=== PATIENT | female | born 1945 | race Caucasian/White ===

== ENCOUNTER → 2018-01-18 | Outpatient (CLI) | payer MEDICARE, OTHER ==
[~2018-01-18] MED LIST: ASPI81CH PO; CHOL10002; CONEST.625 PO; ROSU10TA PO; SIMV10; VALS80 PO
== END | disposition home or self-care (01) ==
LOC: OLS 16:44 → LAB SHORT 16:44
PROVIDERS: Obstetrics & Gynecology Gynecology
DX: Z91.89 Other specified personal risk factors, not elsewhere classified (principal)
CPT/HCPCS: 87624; G0123

== ENCOUNTER → 2018-10-23 | Outpatient (CLI) | payer MEDICARE, OTHER | LOC: LAB 10:00 → LAB SHORT 10:00 → LAB FUT 10-15 14:15 | DX: R10.13 Epigastric pain (principal) | CPT/HCPCS: 87338 ==

== ENCOUNTER → 2019-01-22 | Outpatient (CLI) | payer MEDICARE, OTHER ==
[2019-01-24 13:07] LABS: HPV 16 Negative (Negative); HPV 18 Negative (Negative); HPV OTHER HR TYPES Negative (Negative)
== END | disposition home or self-care (01) ==
LOC: LAB 17:45 → LAB SHORT 17:45
PROVIDERS: Nurse Practitioner Women's Health
DX: Z12.72 Encounter for screening for malignant neoplasm of vagina (principal); Z91.89 Other specified personal risk factors, not elsewhere classified
CPT/HCPCS: 87624; G0123

== ENCOUNTER 2022-08-12 11:08 | Inpatient (IN) | payer MEDICARE, OTHER ==
[~2022-08-12] VITALS: Ht 172.7 cm; Wt 90.7 kg
[2022-08-12] MEDS ORDERED: DONEPEZIL HCL10 M1 PO (13:47)
[2022-08-12] MEDS ORDERED: MEMA10 PO (13:47)
[2022-08-12] MEDS ORDERED: METOPROLOL TART25 MG PO (13:47)
[2022-08-12] MEDS ORDERED: PRAVASTATIN SOD10 MG PO (13:48)
[2022-08-12 14:52] LABS: BASOPHILS ABSOLUTE AUTO 0.02 K/mm3 (0.00-0.23); BASOPHILS PERCENT AUTO 0 % (0-2); EOSINOPHILS PERCENT AUTO 0 % (0-6); Hematocrit 36.7 % (33.0-51.0); Hemoglobin 13.1 g/dL (11.5-16.0); IMMATURE GRAN ABSOLUTE AUTO 0.04 K/mm3 (0.00-0.10); IMMATURE GRAN PERCENT AUTO 1 % (0-1); LYMPHOCYTES ABSOLUTE AUTO 0.77 K/mm3 (0.84-5.20); LYMPHOCYTES PERCENT AUTO 12 % (21-46); MONOCYTES ABSOLUTE AUTO 0.54 K/mm3 (0.16-1.47); MONOCYTES PERCENT AUTO 9 % (4-13); Mean Corpuscular HGB 34.4 pg (26.0-34.0); Mean Corpuscular HGB Conc 35.7 g/dL (31.5-36.5); Mean Corpuscular Volume 96 fL (80-100); Mean Platelet Volume 10.7 fL (9.1-12.4); NEUTROPHILS ABSOLUTE AUTO 4.85 K/mm3 (1.96-9.15); NEUTROPHILS PERCENT AUTO 78 % (41-73); Platelet Count 127 K/mm3 (150-400); RDW Coefficient Variation 12.9 % (11.7-14.2); RDW Standard Deviation 45.2 fL (35.1-46.3); Red Blood Cell Count 3.81 M/mm3 (3.80-5.20); White Blood Cell Count 6.22 K/mm3 (4.00-11.30)
[2022-08-12 15:21] LABS: Albumin, Blood 3.3 g/dL (3.4-5.0); Albumin/Globulin Ratio 0.9 (0.8-1.8); Bilirubin, Total 0.8 mg/dL (0.1-1.0); Bun/Creatinine Ratio 11.4 (12.0-20.0); Calcium, Blood 8.6 mg/dL (8.5-10.1); Creatinine, Blood 0.79 mg/dL (0.40-1.00); Globulin, Blood 3.6 g/dL (2.2-4.0); Potassium, Blood 3.5 mmol/L (3.5-5.5); Total Protein, Blood 6.9 g/dL (6.4-8.2)
[2022-08-12 16:19] LABS: Source, Urine Straight Cath
[2022-08-12 16:24] LABS: Appearance, Urine Cloudy (Clear); Bilirubin, Urine Neg (Neg); Blood, Urine 1+ (Neg); Color, Urine Yellow (P-Yellow); Glucose Qualitative, Urine Neg (Neg); Ketones, Urine Neg (Neg); Leukocyte Esterase, Urine 3+ (Neg); Nitrite, Urine Pos (Neg); Protein, Urine 1+ (Neg); Specific Gravity, Urine 1.015 (1.003-1.022); Urobilinogen, Urine NORM (Normal)
[2022-08-12 16:34] LABS: Bacteria Many /hpf; Red Blood Cells, Urine 0-2 /hpf (0-2); Squamous Epithelial Cells Few /hpf (Few); Transitional Epithelial Cells Few /hpf (0-Rare); White Blood Cells, Urine TNTC /hpf (0-5)
[2022-08-12 17:00] LABS: Influenza A, PCR NEGATIVE (NEGATIVE); Influenza B, PCR NEGATIVE (NEGATIVE); Resp Syncytial Virus, PCR NEGATIVE (NEGATIVE)
[2022-08-12 18:29] LABS: SARS-Cov-2 (COVID-19) PCR, MMC POSITIVE (NEGATIVE)
--- NOTE | 2022-08-12 23:36 | NUR ---
NO ORDER FOR SINCLAIR CATHETER, PAGED DR BALDWIN TO CLRIFY. PER , KEEP SINCLAIR IN PLACE.
--- NOTE | 2022-08-13 04:12 | NUR ---
SHIFT SUMMARY PT ARRIVED TO FLOOR AROUND 2139. ASSESSMENT COMPLETE. SKIN INTACT, NOTED COCCYX TO BE RED BUT BLANCHABLE, MEPILEX APPLIED. PT UNABLE TO RESPOND TO COMMOND/QUESTIONS, VERY DROWSY, PT ARMS VERY RESTLESS. OPENS EYES BREIFLY WITH PHYSICAL STIMULI. PT ON 2LO2 THAT IS NEW. PT NPO UNTIL BEDSIDE SWALLOW EVAL CAN BE COMPLETED. PT MENTATION TOO ALTERED AT THIS TIME. Q 6 BG CHECK EVNTHOUGH PT NOT DIABETIC. IV FLUIDS CONTINUES. PT HAD FEVER DOWN IN ER, DOWN TO 100.8 AT ADMIT. ICE PACKS IN PLACE. SINCLAIR CATHETER PLACED IN ER, DRAINING CLEAR YELLOW URINE. BED ALARM ON, CALL LIGHT IN REACH, FREQUENT ROUNDING TO ASSESS PT NEEDS.
--- NOTE | 2022-08-13 05:42 | NUR ---
DIFFICULT TO OBTAIN ACCURATE BP AT TIMES, PT VERY SHAKY/TREMORS AND UNABLE TO RELAX WHILE STIMULATED. RECHECKED BP, ABLE 20 MINUTES WHEN PT RELAXED, BP STABLE.
[2022-08-13 05:56] LABS: BASOPHILS ABSOLUTE AUTO 0.03 K/mm3 (0.00-0.23); BASOPHILS PERCENT AUTO 0 % (0-2); EOSINOPHILS PERCENT AUTO 0 % (0-6); Hematocrit 36.5 % (33.0-51.0); Hemoglobin 12.8 g/dL (11.5-16.0); IMMATURE GRAN ABSOLUTE AUTO 0.09 K/mm3 (0.00-0.10); IMMATURE GRAN PERCENT AUTO 1 % (0-1); LYMPHOCYTES ABSOLUTE AUTO 0.97 K/mm3 (0.84-5.20); LYMPHOCYTES PERCENT AUTO 10 % (21-46); MONOCYTES ABSOLUTE AUTO 0.69 K/mm3 (0.16-1.47); MONOCYTES PERCENT AUTO 7 % (4-13); Mean Corpuscular HGB Conc 35.1 g/dL (31.5-36.5); Mean Corpuscular Volume 97 fL (80-100); Mean Platelet Volume 10.4 fL (9.1-12.4); NEUTROPHILS ABSOLUTE AUTO 7.93 K/mm3 (1.96-9.15); NEUTROPHILS PERCENT AUTO 82 % (41-73); Platelet Count 111 K/mm3 (150-400); RDW Standard Deviation 46.3 fL (35.1-46.3); Red Blood Cell Count 3.76 M/mm3 (3.80-5.20); White Blood Cell Count 9.71 K/mm3 (4.00-11.30)
[2022-08-13 06:13] LABS: Bun/Creatinine Ratio 8.7 (12.0-20.0); Calcium, Blood 8.4 mg/dL (8.5-10.1); Creatinine, Blood 0.81 mg/dL (0.40-1.00); Potassium, Blood 3.6 mmol/L (3.5-5.5)
--- NOTE | 2022-08-13 17:25 | NUR ---
pt unresponsive huaband at bedside. We reeviewed her dementia and how covid may hasten her decline. is frail has been trying to care for her he is battling prostrate cancer. We discussed a placement secretary plan of care for her that included comfort care and hospice. He wanted me to review with the son her prognsosis and hospice. PT son was very receptive encouraged a plan for both parents. The other children ar arriving tomorrow and they will have a family meeting to make a plan. pt kps score is 30%.
--- NOTE | 2022-08-13 19:22 | NUR ---
PT RESTING IN BED, NO S/S OF ACUTE DISTRESS. SAFETY MEASURES IN PLACE REPORT GIVEN TO ON COMING NURSE.
--- NOTE | 2022-08-14 04:44 | NUR ---
SHIFT SUMMARY 76 YR F ADMITTED WITH AMS/UTI/COVID. DNR. NO ACUTE CHANGES THIS SHIFT. PT SLEPT VERY SOUNDLY FOR MOST OF THIS SHIFT. THIS NURSE WAS UNABLE TO GET HER TO WAKE UP TO TAKE HER MEDS SO ONLY NON-ORAL MEDS WERE GIVEN. PT DID NOT EVEN FLINCH WHEN GIVEN A HEPARIN INJECTION. AT ONE POINT DURING THE SHIFT SHE WOKE UP WHEN BEING CHANGED AND SHE WAS VERY AGGITATED AND WAS TRYING TO SLAP US AWAY FROM HER. WE WERE ABLE TO DO WHAT WE NEEDED TO AND SHE PROMPTLY WENT BACK TO SLEEP.
[2022-08-14 06:30] LABS: BASOPHILS ABSOLUTE AUTO 0.01 K/mm3 (0.00-0.23); BASOPHILS PERCENT AUTO 0 % (0-2); EOSINOPHILS PERCENT AUTO 0 % (0-6); Hematocrit 35.7 % (33.0-51.0); Hemoglobin 12.7 g/dL (11.5-16.0); IMMATURE GRAN ABSOLUTE AUTO 0.06 K/mm3 (0.00-0.10); IMMATURE GRAN PERCENT AUTO 1 % (0-1); LYMPHOCYTES ABSOLUTE AUTO 0.81 K/mm3 (0.84-5.20); LYMPHOCYTES PERCENT AUTO 8 % (21-46); MONOCYTES ABSOLUTE AUTO 0.33 K/mm3 (0.16-1.47); MONOCYTES PERCENT AUTO 3 % (4-13); Mean Corpuscular HGB Conc 35.6 g/dL (31.5-36.5); Mean Corpuscular Volume 96 fL (80-100); Mean Platelet Volume 10.8 fL (9.1-12.4); NEUTROPHILS ABSOLUTE AUTO 9.04 K/mm3 (1.96-9.15); NEUTROPHILS PERCENT AUTO 88 % (41-73); Platelet Count 93 K/mm3 (150-400); RDW Coefficient Variation 12.5 % (11.7-14.2); RDW Standard Deviation 44.7 fL (35.1-46.3); Red Blood Cell Count 3.73 M/mm3 (3.80-5.20); White Blood Cell Count 10.25 K/mm3 (4.00-11.30)
[2022-08-14 06:59] LABS: Bun/Creatinine Ratio 11.9 (12.0-20.0); Calcium, Blood 8.3 mg/dL (8.5-10.1); Creatinine, Blood 0.76 mg/dL (0.40-1.00); Potassium, Blood 3.3 mmol/L (3.5-5.5)
--- NOTE | 2022-08-14 19:23 | NUR ---
PT RESTING IN BED NO S/S OF ACUTE DISTRESS, SAFETY MEASURES IN PLACE. REPORT GIVEN TO ON COMING NURSE.
[2022-08-15 06:30] LABS: BASOPHILS ABSOLUTE AUTO 0.02 K/mm3 (0.00-0.23); BASOPHILS PERCENT AUTO 0 % (0-2); EOSINOPHILS PERCENT AUTO 0 % (0-6); Hematocrit 35.1 % (33.0-51.0); Hemoglobin 12.6 g/dL (11.5-16.0); IMMATURE GRAN ABSOLUTE AUTO 0.09 K/mm3 (0.00-0.10); IMMATURE GRAN PERCENT AUTO 1 % (0-1); LYMPHOCYTES ABSOLUTE AUTO 0.71 K/mm3 (0.84-5.20); LYMPHOCYTES PERCENT AUTO 7 % (21-46); MONOCYTES ABSOLUTE AUTO 0.29 K/mm3 (0.16-1.47); MONOCYTES PERCENT AUTO 3 % (4-13); Mean Corpuscular HGB 33.5 pg (26.0-34.0); Mean Corpuscular HGB Conc 35.9 g/dL (31.5-36.5); Mean Corpuscular Volume 93 fL (80-100); Mean Platelet Volume 11.2 fL (9.1-12.4); NEUTROPHILS ABSOLUTE AUTO 8.44 K/mm3 (1.96-9.15); NEUTROPHILS PERCENT AUTO 89 % (41-73); Platelet Count 102 K/mm3 (150-400); RDW Coefficient Variation 12.2 % (11.7-14.2); RDW Standard Deviation 42.5 fL (35.1-46.3); Red Blood Cell Count 3.76 M/mm3 (3.80-5.20); White Blood Cell Count 9.55 K/mm3 (4.00-11.30)
[2022-08-15 06:58] LABS: Bun/Creatinine Ratio 17.6 (12.0-20.0); Calcium, Blood 8.6 mg/dL (8.5-10.1); Creatinine, Blood 0.63 mg/dL (0.40-1.00); Potassium, Blood 3.3 mmol/L (3.5-5.5)
--- NOTE | 2022-08-15 07:21 | NUR ---
SUMMARY PT IS LESS AGGITATED, BUT CONTINUES TO PIC AT LINENS AND TAKE 02 OFF/PULL AT LINES.AND PUSHESAT STAFF AND GRABS AT HANDS WHEN WE TRY TO REPLACE O2 OR LINEN.
[2022-08-16 06:01] LABS: BASOPHILS ABSOLUTE AUTO 0.01 K/mm3 (0.00-0.23); BASOPHILS PERCENT AUTO 0 % (0-2); EOSINOPHILS PERCENT AUTO 0 % (0-6); Hematocrit 34.9 % (33.0-51.0); Hemoglobin 12.5 g/dL (11.5-16.0); IMMATURE GRAN ABSOLUTE AUTO 0.09 K/mm3 (0.00-0.10); IMMATURE GRAN PERCENT AUTO 1 % (0-1); LYMPHOCYTES ABSOLUTE AUTO 0.69 K/mm3 (0.84-5.20); LYMPHOCYTES PERCENT AUTO 8 % (21-46); MONOCYTES ABSOLUTE AUTO 0.35 K/mm3 (0.16-1.47); MONOCYTES PERCENT AUTO 4 % (4-13); Mean Corpuscular HGB 33.5 pg (26.0-34.0); Mean Corpuscular HGB Conc 35.8 g/dL (31.5-36.5); Mean Corpuscular Volume 94 fL (80-100); Mean Platelet Volume 11.4 fL (9.1-12.4); NEUTROPHILS PERCENT AUTO 87 % (41-73); Platelet Count 129 K/mm3 (150-400); RDW Coefficient Variation 12.5 % (11.7-14.2); Red Blood Cell Count 3.73 M/mm3 (3.80-5.20); White Blood Cell Count 8.44 K/mm3 (4.00-11.30)
[2022-08-16 06:56] LABS: Bun/Creatinine Ratio 28.9 (12.0-20.0); Calcium, Blood 8.7 mg/dL (8.5-10.1); Creatinine, Blood 0.66 mg/dL (0.40-1.00); Potassium, Blood 3.4 mmol/L (3.5-5.5)
--- NOTE | 2022-08-16 15:33 | NUR ---
CARE CONF WITH RN, SHE REPORTS PT IS PLEASANTLY CONFUSED WITH NO ISSUES. PT HAVING NO ISSUES WITH SWALLOWING AND IS EATING APPROX 80-90% OF HER MEALS. PT IS UNABLE TO FEED HERSELF AND NEEDS TO BE FED. MET WITH PT FAMILY, DAUGHTER, SON AND SPOUSE IN THE ROOM. PT IS SITTING UP IN BED WITH EYES CLOSED, SMILING AND MUMBLING TO HERSELF. PT DOES NOT FOLLOW DIRECTIONS AND PICKING AT HER BLANKETS. DAUGHTER AND SON VERY ENGAGED IN CONVERSATION WITH MANY QUESTIONS, SPOUSE SITTING IN CHAIR AT TH BEDSIDE AND DID NOT PARTICIAPTE IN CONVERSATION. HE APPEARS TO BE WITHDRAWN AND DOESNT ANSWER ANY QUESTIONS THAT HIS CHILDREN ASK HIM. PROVIDED EXTENSIVE EDUCATION ON WHAT THE DIFFERENCE IS BETWEEN PALLIATIVE, HOSPICE CARE, IN-HOME CARE AND CARE IN A FACILITY IS. FAMILY SEEMS OPEN TO HOSPICE CARE, BUT THEN MAKE SEVERAL STATEMENTS THAT SHE WAS FINE BEFORE SHE HAD THIS UTI AND COVID. PT WAS ABLE TO GET UP, AMB AND TOILET HERSELF. FAMILY IS ASKING FOR INFORMATION ON IN HOME CAREGIVERS WITH THE POSSABILITY OF THE ADDITION OF HOSPICE. FAMILY IS ASKING FOR A MEDICAL UPDATE OF THE PT, THE RN WILL BE IN SHORTLY AND WHAT THE DC PLAN IS. I ADVISED THAT I WILL FOLLOW UP WITH EARNEST CALDERON, SHE HAS A LIST OF CAREGIVERS AND CAN GIVE THEM A BETTER IDEA OF WHEN PT MIGHT BE READY FOR DC. PROVIDED FAMILY WITH MY CARD WITH PALLIATIVE CARE CONTACT INFORMATION, AND ADVISED WE WILL CONTINUE TO MAKE VISITS AND SUPPORT THEM THEY MAKE THESE HARD DECISIONS.
--- NOTE | 2022-08-16 17:51 | NUR ---
SHIFT SUMMARY- PT HAD HER EYES CLOSED THIS SHIFT. SHE WAS SPEAKING IN [place]. SHE IS EATING AND DRINKING WELL WITH ASSISTANCE. SHE RECIEVED A BED BATH THIS SHIFT. FAMILY AT BEDSIDE THIS AFTERNOON, PALATIVE CARE NURSE IN WITH FAMILY. SHE IS RECIEVING ABX IV. SHE IS INC AND ATTENDS IN PLACE. ISOLATION MAINTAINED THIS SHIFT. HER BED IS IN THE LOW POSTION AND CALL LIGHT IS WITIN REACH.
--- NOTE | 2022-08-17 04:33 | NUR ---
SUMMARY - PATIENT CONFUSED DOES NOT INTERACT WITH STAFF. PATIENT DID NOT OPEN HER EYES THIS SHIFT BUT IS ALERT AND REACTS TO VERBAL STIMULI. PATIENT INCONTINENT, BREIFS CHANGED THROUGHOUT NIGHT. TURNED PATIENT 2HR IN BED. PATIENT DOES HAVE SPASTIC MOVMENTS WHEN STAFF IS REPOSITIONING HER. SHE QUICKLY CALMS ONCE STAFF HAS COMPLETED CARE. EATS AND DRINKS DIET PROVIDED. NEEDS ASSISTANCE WITH MEALS. PATIENT DOES MUMBLE WORDS BUT HARD TO UNDERSTAND PATIENT MOSTLY SPEAKS IN [place]. CALL LIGHT IN REACH. BED ALARM ON.
[2022-08-17 06:02] LABS: BASOPHILS ABSOLUTE AUTO 0.02 K/mm3 (0.00-0.23); BASOPHILS PERCENT AUTO 0 % (0-2); EOSINOPHILS ABSOLUTE AUTO 0.01 K/mm3 (0.00-0.68); EOSINOPHILS PERCENT AUTO 0 % (0-6); Hematocrit 33.3 % (33.0-51.0); Hemoglobin 11.9 g/dL (11.5-16.0); IMMATURE GRAN ABSOLUTE AUTO 0.09 K/mm3 (0.00-0.10); IMMATURE GRAN PERCENT AUTO 2 % (0-1); LYMPHOCYTES ABSOLUTE AUTO 0.59 K/mm3 (0.84-5.20); LYMPHOCYTES PERCENT AUTO 10 % (21-46); MONOCYTES ABSOLUTE AUTO 0.31 K/mm3 (0.16-1.47); MONOCYTES PERCENT AUTO 5 % (4-13); Mean Corpuscular HGB Conc 35.7 g/dL (31.5-36.5); Mean Corpuscular Volume 95 fL (80-100); Mean Platelet Volume 11.4 fL (9.1-12.4); NEUTROPHILS PERCENT AUTO 83 % (41-73); Platelet Count 131 K/mm3 (150-400); RDW Coefficient Variation 12.6 % (11.7-14.2); RDW Standard Deviation 43.8 fL (35.1-46.3); White Blood Cell Count 5.82 K/mm3 (4.00-11.30)
[2022-08-17 09:02] LABS: Magnesium, Blood 2.2 mg/dL (1.6-2.4)
[2022-08-17 10:59] LABS: Albumin, Blood 2.6 g/dL (3.4-5.0); Anion Gap 6 mmol/L (6-16); Blood Urea Nitrogen 23 mg/dL (8-24); Bun/Creatinine Ratio 32.7 (12.0-20.0); CO2, Blood 25 mmol/L (21-32); Calcium, Blood 8.9 mg/dL (8.5-10.1); Chloride, Blood 113 mmol/L (98-108); Glomerular Filtration Rate 89 (60-); Glucose, Blood 300 mg/dL (70-99); Phosphorus, Blood 2.9 mg/dL (2.5-4.9); Potassium, Blood 3.6 mmol/L (3.5-5.5); Sodium, Blood 144 mmol/L (136-145)
--- NOTE | 2022-08-17 17:49 | NUR ---
Review of pt changes with family and phsycian. pt Iv has sopped functioning. 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 Called son and daughter about Iv site and potential for restraints and the risks of restaining her. Daughter struggling with pt not having fluids. she want to speak with physician. Daughter wants phone confrence with her father , herself and physician . Luli Larkin. Will dcontinue to support pt family with decision making and support.
--- NOTE | 2022-08-17 19:16 | NUR ---
SHIFT SUMMARY PT AXO 0-1 THROUGHOUT THE SHIFT. COMBATIVE WITH CARE WHEN CHANGING BRIEF OR REPOSITIONING. LOST IV ACCESS AT BEGINNING OF SHIFT. PALLIATIVE CARE AND DR CROWE IN CONTACT WITH FAMILY REGARDING ETHICS OF RESTARTING IV. SEE PALLIATIVE CARE AND DR CROWE NOTES. PT ATE BREAKFAST WELL BUT REFUSED LUNCH AND DINNER. 300ML TRACY URINE OUT THIS SHIFT VIA PURWICK PLUS SOME IN BRIEF. PT MEDICATED FOR PAIN X1 THIS SHIFT. PT TRANSITIONED TO COMFORT CARE AND END OF SHIFT. REPORT GIVEN TO RESIDENTIAL LIFE DIRECTOR NURSE WHO ASSUMES CARE AT THIS TIME.
--- NOTE | 2022-08-18 05:33 | NUR ---
SUMMARY - PATIENT ON COMFORT MEASURES. GAVE PRN MEDS. PURE WIC IN PLACE. PATIENT SLIGHTLY AGITATED AT SHIFT CHANGE BUT RESPNDED WELL TO PRN MEDICATIONS. CRUSHED MEDS IN APPLESAUCE FOR PATIENT. CALL LIGHT IN REACH. BED IN LOWEST POSITION. ALARM ON.
--- NOTE | 2022-08-18 19:32 | NUR ---
SUMMARY- PT SOMNOLANT, COMFORT CARE. APPEARS COMFORTABLE, A LITTLE GRIMACE WITH MOVEMENT. ROXONOL X2 THIS SHIFT. RR 16, UNLABORED. UNABLE TO GIVE PT MEDS ORALLY TODAY WITH DECREASED LOC. PLAN TO DC HOME WITH FAMILY HOSPICE 08/19/22
--- NOTE | 2022-08-19 05:20 | NUR ---
SUMMARY: PATIENT ON COMFORT CARE. NON LABORED BREATHING. PATIENT NOT ALERT FOR ORAL MEDS. ORAL CARE PROVIDED AND PATIENT DENTURES REMOVED AND CLEANED. MEDS GIVEN PRN. PATIENT RESTING COMFORTABLY. CALL LIGHT IN REACH.
[2022-08-19] MEDS ORDERED: ACETAMINOPHEN PR (11:18)
[2022-08-19] MEDS ORDERED: ACETAMINOP160 MG/51 PO (11:19)
[2022-08-19] MEDS ORDERED: ATROPINE S0.1 MG/1 M SL (11:20)
[2022-08-19] MEDS ORDERED: HALOPERIDOL2 MG/1 M1 PO (11:21)
[2022-08-19] MEDS ORDERED: MORP20L PO (11:23)
[2022-08-19] MEDS ORDERED: Ativan1 MG PO (11:23)
[2022-08-19] MEDS ORDERED: PROMETHAZINE12.5 M1 PO (11:24)
[2022-08-19] MEDS ORDERED: TRANSDERM-SCOP1 EA10 TD (11:24)
--- NOTE | 2022-08-19 12:52 | NUR ---
[address] [facility] [place] WITH HOSPICE. MEDICATED WITH ROXONOL 2OMG ONE HOUR PRIOR. APPEARED COMFORTABLE ONCE MOVE COMPLETED. PAPERS AND DC PACKET SENT WITH TRANSPORTERS. SENT [place] AND PICRURE, WELL OTHER BELONGINGS.
== END 2022-08-19 12:40 | disposition hospice, home (50) | DRG 177 ==
LOC: ER 11:08 → MEDS 11:09
PROVIDERS: Emergency Medicine; Family Medicine; Internal Medicine; ADMIT Student in an Organized Health Care Education/Training Program
PROC: XW033E5 Introduction of Remdesivir Anti-infective into Peripheral Vein, Percutaneous Approach, New Technology Group 5 (ICD-10-PCS; principal; 2022-08-13)
PROC: 3E0333Z Introduction of Anti-inflammatory into Peripheral Vein, Percutaneous Approach (ICD-10-PCS; 2022-08-13)
PROC: 3E0DX3Z Introduction of Anti-inflammatory into Mouth and Pharynx, External Approach (ICD-10-PCS; 2022-08-14)
DX: U07.1 COVID-19 (principal); J96.01 Acute respiratory failure with hypoxia; N39.0 Urinary tract infection, site not specified; D68.51 Activated protein C resistance; Z66 Do not resuscitate; Z51.5 Encounter for palliative care; G30.9 Alzheimer's disease, unspecified; F02.80 Dementia in other diseases classified elsewhere, unspecified severity, without behavioral disturbance, psychotic disturbance, mood disturbance, and anxiety; I25.10 Atherosclerotic heart disease of native coronary artery without angina pectoris; I10 Essential (primary) hypertension; R73.03 Prediabetes; B96.20 Unspecified Escherichia coli [E. coli] as the cause of diseases classified elsewhere; K21.9 Gastro-esophageal reflux disease without esophagitis; Z95.1 Presence of aortocoronary bypass graft; Z86.711 Personal history of pulmonary embolism; Z98.890 Other specified postprocedural states; Z79.82 Long term (current) use of aspirin; Z79.899 Other long term (current) drug therapy
CPT/HCPCS: 0241U; 36415; 51702; 70450; 71045; 72125; 80048; 80053; 80069; 81001; 82947; 83735; 85025; 87077; 87086; 87186; 94760; 96361; 96372; 96372-59; 96374-59; 96375; 96375-59; 96376; 99285-25; A9270; G0378; J0248; J0696; J1100; J1644; J3480; J7030; J7042; J7050; J7120; J7512